=== PATIENT | female | born 1960 | race African-American/Black ===

== ENCOUNTER 2017-10-03 16:13 | Inpatient (IN) | payer OTHER ==
--- NOTE | 2017-10-03 19:50 | HP ---
Admission ROS [facility] - [facility] Chief Complaint: i want to go to rehab Allergies/Adverse Reactions: Allergies Allergy/AdvReac Type Severity Reaction Status Date / Time No Known Allergies Allergy Verified 10/03/17 18:56 History of Present Illness: 56 years old female with long history of cocaine marijuana nicotine dependence has schizophrenia is admitted to rehab Exam Limitations: No Limitations - Ebola screening Have you traveled outside of the country in the last 21 days: No Have you had contact with anyone from an Ebola affected area: No Have you been sick,other than usual withdrawal symptoms: No Do you have a fever: No - Review of Systems Constitutional: Loss of Appetite, Unintentional Wgt. Loss, Unexplained wgt Loss EENT: reports: Blurred Vision (reading eye glasses) Respiratory: reports: Cough Cardiac: reports: No Symptoms Reported GI: reports: No Symptoms Reported : reports: No Symptoms Reported Musculoskeletal: reports: No Symptoms Reported Integumentary: reports: No Symptoms Reported Neuro: reports: No Symptoms reported Endocrine: reports: No Symptoms Reported Hematology: reports: No Symptoms Reported Psychiatric: reports: Judgement Intact, Mood/Affect Appropiate, Orientated x3 Other Systems: Reviewed and Negative Patient History - Patient Medical History Hx Anemia: No Hx Asthma: No Hx Chronic Obstructive Pulmonary Disease (COPD): No Hx Cancer: No Hx Cardiac Disorders: No Hx Congestive Heart Failure: No Hx Hypertension: No Hx Hypercholesterolemia: No Hx Pacemaker: No HX Cerebrovascular Accident: No Hx Seizures: No Hx Dementia: No Hx Diabetes: No Hx Gastrointestinal Disorders: No Hx Liver Disease: No Hx Genitourinary Disorders: No Hx Sexually Transmitted Disorders: No Hx Renal Disease (ESRD): No Hx Thyroid Disease: No Hx Human Immunodeficiency Virus (HIV): No Hx Hepatitis C: No Hx Depression: No Hx Suicide Attempt: No Hx Bipolar Disorder: No Hx Schizophrenia: Yes - Patient Surgical History Past Surgical History: Yes Hx Orthopedic Surgery: Yes (fx age 46) Anesthesia Reaction: No - PPD History Previous Implant?: Yes Documented Results: Negative w/o proof Implanted On Prior R Admission?: No PPD to be Administered?: Yes - Reproductive History Patient is a Female of Child Bearing Age (11 -55 yrs old): No Last Menstrual Period: 10/03/02 Patient : No - Smoking Cessation Smoking history: Current every day smoker Have you smoked in the past 12 months: Yes Aproximately how many cigarettes per day: 10 Cigars Per Day: 0 Hx Chewing Tobacco Use: No Initiated information on smoking cessation: Yes 'Breaking Loose' booklet given: 10/03/17 - Substance & Tx. History Hx Alcohol Use: No Hx Substance Use: Yes Substance Use Type: Cocaine, Marijuana Hx Substance Use Treatment: No (2009) - Substances Abused Cocaine Route: Smoking Frequency: Daily Amount used: 50$ Age of first use: 25 Date of Last Use: 10/01/17 Marijuana/Hashish Route: Smoking Frequency: Daily Amount used: 5$ Age of first use: 14 Date of Last Use: 09/30/17 Family Disease History - Family Disease History Family Disease History: Heart Disease: Father, Respiratory: Mother, Other: Brother (no brother) Admission Physical Exam [facility] - Vital Signs Vital Signs: Vital Signs - 24 hr 10/03/17 18:31 Temperature 97.8 F Pulse Rate 67 Respiratory 18 Rate Blood Pressure 95/58 - Physical General Appearance: Yes: No Apparent Distress, Appropriately Dressed, Thin HEENTM: Yes: Hearing grossly Normal, Normal ENT Inspection, Normocephalic, Normal Voice Respiratory: Yes: Chest Non-Tender, Lungs Clear, Normal Breath Sounds, No Respiratory Distress, No Accessory Muscle Use Neck: Yes: Supple, Trachea in good position Breast: Yes: Breasts Symetrical Cardiology: Yes: Regular Rhythm, Regular Rate, S1, S2 Abdominal: Yes: Normal Bowel Sounds, Non Tender, Soft Genitourinary: Yes: Within Normal Limits Back: Yes: Normal Inspection Musculoskeletal: Yes: full range of Motion, Gait Steady, Back pain, Muscle Pain (right knee) Extremities: Yes: Normal Inspection, Normal Range of Motion, Non-Tender Neurological: Yes: Fully Oriented, Alert, Motor Strength 5/5, Normal Mood/Affect , Normal Response Integumentary: Yes: Warm Lymphatic: Yes: Within Normal Limits - Diagnostic (1) Cocaine dependence, uncomplicated Current Visit: Yes Status: Acute (2) Cannabis dependence, uncomplicated Current Visit: Yes Status: Acute (3) Nicotine dependence Current Visit: Yes Status: Acute Qualifiers: Nicotine product type: cigarettes Substance use status: in withdrawal Qualified Code(s): F17.213 - Nicotine dependence, cigarettes, with withdrawal (4) Weight loss Current Visit: Yes Status: Acute Cleared for Admission [facility] - Detox or Rehab [facility] Level of Care: Observation Bed Detox Regimen/Protocol: Not Applicable Claeared for Rehab Admission: Yes [facility] Breath Alcohol Content Breath Alcohol Content: 0 Urine Pregancy Test - Result Urine Test Results: Negative- NO Line Present Urine Drug Screen - Results Drug Screen Negative: No Urine Drug Screen Results: THC-Marijuana, JEFF-Cocaine Inpatient Rehab Admission - Initial Determination Are CD services needed?: Yes Free of communicable disease: Yes Not in need of hospitalization: Yes - Rehab Admission Criteria Previous failed treatment: Yes Poor recovery environment: Yes Comorbidities: Yes Lacks judgement: No Patient is meeting Inpatient Rehab admission criteria:: Yes
[2017-10-03] MEDS ORDERED: NICOTINE POLACRILEX 2 MG GUM BUC PRN (20:00)
[2017-10-03] MEDS ORDERED: IBUPROFEN 400 MG TABLET (FP) PO PRN (20:00)
[2017-10-03] MEDS ORDERED: guaiFENesin/D-METHORPHAN HB 10 ML UNIT-DOSE CUPS PO PRN (20:00)
[2017-10-03] MEDS ORDERED: P-EPHED 60MG/TRIPROLIDI 2.5MG TABLET PO PRN (20:00)
[2017-10-03] MEDS ORDERED: LOPERAMIDE HCL 2 MG CAPSULE PO PRN (20:00)
[2017-10-03] MEDS ORDERED: MAG HYDROX/AL HYDROX/SIMETH 30 ML UNIT-DOSE CUP PO PRN (20:00)
[2017-10-03] MEDS ORDERED: MENTHOL/PHENOL 1 EACH UD MM PRN (20:00)
[2017-10-03] MEDS ORDERED: MAGNESIUM HYDROX 2400MG/30ML ORAL SUSPENSION 30 ML CUP PO PRN (20:00)
[2017-10-03] MEDS ORDERED: MAGNESIUM CITRATE 300 ML BOTTLE PO PRN (20:00)
[2017-10-03] MEDS ORDERED: ACETAMINOPHEN 325 MG TABLET (FP) PO PRN (20:00)
--- NOTE | 2017-10-03 23:00 | PN ---
[facility] Progress Note Note: Psychiatry Attending's on-call note : Made aware of patient's admission to [facility]. Orders requested for haldol,depakote and cogentin. Spoke to patient (telephone).Reliable and clear historian. Medications verified through survey of pharmacy claims. Refills issued on 08/29/17 at [facility] for : haldol 5 mg # 60 tablets for 30 days cogentin 1 mg # 60 tablets for 30 days depakote 250 mg # 60 tablets for 30 days Ms Butts declares that she last took her medications this morning. Endorses adequate adherence and good tolerability. No prior history of adverse effects (as per self-report). Diagnosis : Schizophrenia. Plan : [facility] report is reviewed. History taken from patient. Medications verified. Side effects/benefits discussed with patient. Depakote level : requested. Haldol 5 mg po bid Cogentin 1 mg po bid Depakote HELD at this time (pending results of VA level,LFTS and CBC). Unit psychiatrist will advise in AM. Discussed with nurse on duty.
[2017-10-03] MEDS: THIAMINE HCL 100 MG TABLET (FP) PO SCH (23:06)
[2017-10-03 23:20] LABS: URINE APPEARANCE CLOUDY; URINE BILIRUBIN NEGATIVE (NEGATIVE); URINE BLOOD NEGATIVE (NEGATIVE); URINE COLOR DKYELLOW; URINE GLUCOSE (UA) NEGATIVE (NEGATIVE); URINE KETONE NEGATIVE (NEGATIVE); URINE NITRITE POSITIVE (NEGATIVE); URINE PROTEIN NEGATIVE (NEGATIVE); URINE UROBILINOGEN NEGATIVE mg/dL (0.2-1.0)
[2017-10-03 23:22] LABS: URINE LEUK ESTERASE 3+ (NEGATIVE)
[2017-10-03 23:29] LABS: EPI CELLS RARE /HPF (FEW); URINE BACTERIA MANY /hpf (NONE SEEN); URINE MUCUS MANY
[2017-10-03] MEDS: HALOPERIDOL 5 MG TABLET (FP) PO SCH (23:41)
[2017-10-03] MEDS: BENZTROPINE MESYLATE 1 MG TABLET (FP) PO SCH (23:41)
[2017-10-04] MEDS: HALOPERIDOL 5 MG TABLET (FP) PO SCH ×2 (09:35→21:47)
[2017-10-04] MEDS: BENZTROPINE MESYLATE 1 MG TABLET (FP) PO SCH ×2 (09:36→21:47)
[2017-10-04] MEDS: PRENATAL VITAMINS W/ FOLIC ACID TABLET (FP) PO SCH (09:36)
[2017-10-04] MEDS: NICOTINE 14 MG/24 HOURS TOPICAL PATCH TD SCH (09:36)
--- NOTE | 2017-10-04 09:39 | EKG ---
Test Reason : Blood Pressure : / mmHG Vent. Rate : 058 BPM Atrial Rate : 058 BPM P-R Int : 150 ms QRS Dur : 088 ms QT Int : 434 ms P-R-T Axes : 080 073 061 degrees QTc Int : 426 ms SINUS BRADYCARDIA ABNORMAL ECG NO PREVIOUS ECGS AVAILABLE Confirmed by FRANDY YANG, GIULIA ([id number]) on 10/04/2017 9:38:53 AM Referred By: Confirmed By:GIULIA WISE MD
[2017-10-04 10:14] LABS: HEMATOCRIT 37.6 % (32.4-45.2); HEMOGLOBIN 11.9 GM/dL (10.7-15.3); MCH 28.5 pg (25.7-33.7); MCHC 31.6 g/dl (32.0-36.0); MEAN CELL VOLUME 90.3 fl (80-96); MEAN PLT VOLUME 10.2 fl (7.5-11.1); PLATELET COUNT 231 K/MM3 (134-434); RBC 4.17 M/mm3 (3.60-5.2); RDW 14.7 % (11.6-15.6); WHITE BLOOD COUNT 8.3 K/mm3 (4.0-10.0)
[2017-10-04 10:27] LABS: CHLORIDE 107 mmol/L (98-107); POTASSIUM 4.4 mmol/L (3.5-5.1); SODIUM 142 mmol/L (136-145)
[2017-10-04 10:36] LABS: ALBUMIN 3.5 g/dl (3.4-5.0); ALK PHOS 114 U/L (45-117); ANION GAP 5 (8-16); BILIRUBIN,TOTAL 0.4 mg/dL (0.2-1.0); BLOOD UREA NITROGEN 8 mg/dL (7-18); CALCIUM 9.1 mg/dL (8.5-10.1); CO2 30 mmol/L (21-32); CREATININE 0.9 mg/dL (0.55-1.02); GLUCOSE,RANDOM 84 mg/dL (74-106); SGOT/AST 7 U/L (15-37); SGPT/ALT 15 U/L (12-78); TOT PROT 7.2 g/dl (6.4-8.2)
[2017-10-04] MEDS ORDERED: FLU VACCINE QUAD 60 MCG/0.5 ML (MDV 17-18) IM ONE (12:00)
--- NOTE | 2017-10-04 12:13 | EKG ---
Test Reason : Blood Pressure : / mmHG Vent. Rate : 057 BPM Atrial Rate : 057 BPM P-R Int : 148 ms QRS Dur : 082 ms QT Int : 440 ms P-R-T Axes : 069 070 040 degrees QTc Int : 428 ms SINUS BRADYCARDIA NONSPECIFIC T WAVE ABNORMALITY ABNORMAL ECG WHEN COMPARED WITH ECG OF 04-OCT-2017 00:23, NO SIGNIFICANT CHANGE WAS FOUND Confirmed by GIULIA WISE MD ([id number]) on 10/04/2017 12:12:54 PM Referred By: Confirmed By:GIULIA WISE MD
--- NOTE | 2017-10-04 14:14 | HP ---
Psychiatrist Admission - Data Date of interview: 10/04/17 Admission source: [facility] Identifying data: This is the first admission to [facility] inpatient rehabiklitation for this 56 years old AA ,childless,resides with roommate,suported by SSD. Medical History: H/O fracture of arm . Psychiatric History: First contact with psychiatrist was at 25 years old when she was admitted to [facility] due to psychosis drug related.She reports 4 more psychiatric hospitalizations.Patient was dx with Schizoaffective disorder.Bipolar disorder.Sanchez sees psychiatrist at [facility] in the [place].She is currently on Haldol 5 mg po bid,Cogentin 1 mg po bid and DepaKOTE Physical/Sexual Abuse/Trauma History: denies Vital Signs: Vital Signs - 24 hr 10/03/17 10/04/17 10/04/17 18:31 00:30 07:53 Temperature 97.8 F 98.2 F Pulse Rate 67 70 Respiratory 18 16 18 Rate Blood Pressure 95/58 99/63 Allergies/Adverse Reactions: Allergies Allergy/AdvReac Type Severity Reaction Status Date / Time No Known Allergies Allergy Verified 10/03/17 18:56 Date of last physical exam: 10/03/17 Concur with the findings of this exam: Yes - Substance Abuse/Tx History Hx Alcohol Use: Yes (socially) Hx Substance Use: Yes (reports crack/cocaine since 1985,spending $50 daily) Substance Use Type: Cocaine, Marijuana Hx Substance Use Treatment: Yes (completed inpatient rehab [employer] 10 yo, longest abstinence 6 yeasr) Mental Status Exam - Mental Status Exam Alert and Oriented to: Time, Place, Person Cognitive Function: Grossly Intact Patient Appearance: Unkempt Mood: Sad Affect: Mood Congruent, Labile Patient Behavior: Cooperative Speech Pattern: Clear Voice Loudness: Normal Thought Process: Goal Oriented Thought Disorder: Being Controlled Hallucinations: Denies Suicidal Ideation: Denies Homicidal Ideation: Denies Insight/Judgement: Fair Sleep: Fair Appetite: Fair Muscle strength/Tone: Normal Gait/Station: Normal Psychiatric Findings - Problem List ([place] 1, 2,3) (1) Nicotine dependence Current Visit: Yes Status: Chronic Qualifiers: Nicotine product type: cigarettes Substance use status: in withdrawal Qualified Code(s): F17.213 - Nicotine dependence, cigarettes, with withdrawal (2) Cocaine dependence Current Visit: Yes Status: Chronic (3) Cannabis dependence Current Visit: Yes Status: Chronic (4) Schizoaffective disorder Current Visit: Yes Status: Chronic - Initial Treatment Plan Initial Treatment Plan: Continue Haldol 5 mg po bid,Depakote 250 mg po bid, Cogentin 1 mg po bid. Will monitor progress.Obtain Depakote level.
[2017-10-04 15:28] LABS: RPR REACTIVE 1:2 (NONREACTIVE)
[2017-10-04] MEDS: THIAMINE HCL 100 MG TABLET (FP) PO SCH (21:47)
[2017-10-04] MEDS: DIVALPROEX SODIUM 250 MG TABLET E.C. (FP) PO SCH (21:47)
[2017-10-05] MEDS: DIVALPROEX SODIUM 250 MG TABLET E.C. (FP) PO SCH ×2 (10:01→21:31)
[2017-10-05] MEDS: BENZTROPINE MESYLATE 1 MG TABLET (FP) PO SCH ×2 (10:01→21:31)
[2017-10-05] MEDS: PRENATAL VITAMINS W/ FOLIC ACID TABLET (FP) PO SCH (10:01)
[2017-10-05] MEDS: HALOPERIDOL 5 MG TABLET (FP) PO SCH ×2 (10:01→21:31)
[2017-10-05] MEDS: NICOTINE 14 MG/24 HOURS TOPICAL PATCH TD SCH (10:02)
[2017-10-05 15:40] LABS: TREPONEMA ANTIBODY NON REACTIVE (NONREACTIVE)
[2017-10-05] MEDS: THIAMINE HCL 100 MG TABLET (FP) PO SCH (21:31)
[2017-10-06] MEDS: PRENATAL VITAMINS W/ FOLIC ACID TABLET (FP) PO SCH (09:58)
[2017-10-06] MEDS: BENZTROPINE MESYLATE 1 MG TABLET (FP) PO SCH ×2 (09:58→21:34)
[2017-10-06] MEDS: DIVALPROEX SODIUM 250 MG TABLET E.C. (FP) PO SCH ×2 (09:58→21:34)
[2017-10-06] MEDS: HALOPERIDOL 5 MG TABLET (FP) PO SCH ×2 (09:58→21:34)
[2017-10-06] MEDS: NICOTINE 14 MG/24 HOURS TOPICAL PATCH TD SCH (09:59)
[2017-10-06] MEDS: THIAMINE HCL 100 MG TABLET (FP) PO SCH (21:34)
[2017-10-07] MEDS: BENZTROPINE MESYLATE 1 MG TABLET (FP) PO SCH ×2 (10:30→21:31)
[2017-10-07] MEDS: DIVALPROEX SODIUM 250 MG TABLET E.C. (FP) PO SCH ×2 (10:30→21:31)
[2017-10-07] MEDS: HALOPERIDOL 5 MG TABLET (FP) PO SCH ×2 (10:30→21:31)
[2017-10-07] MEDS: NICOTINE 14 MG/24 HOURS TOPICAL PATCH TD SCH (10:30)
[2017-10-07] MEDS: PRENATAL VITAMINS W/ FOLIC ACID TABLET (FP) PO SCH (10:30)
[2017-10-07] MEDS: THIAMINE HCL 100 MG TABLET (FP) PO SCH (21:31)
[2017-10-08] MEDS: NICOTINE 14 MG/24 HOURS TOPICAL PATCH TD SCH (10:02)
[2017-10-08] MEDS: BENZTROPINE MESYLATE 1 MG TABLET (FP) PO SCH ×2 (10:03→21:44)
[2017-10-08] MEDS: DIVALPROEX SODIUM 250 MG TABLET E.C. (FP) PO SCH ×2 (10:03→21:45)
[2017-10-08] MEDS: PRENATAL VITAMINS W/ FOLIC ACID TABLET (FP) PO SCH (10:03)
[2017-10-08] MEDS: HALOPERIDOL 5 MG TABLET (FP) PO SCH ×2 (10:03→21:45)
[2017-10-08] MEDS: THIAMINE HCL 100 MG TABLET (FP) PO SCH (21:45)
[2017-10-09] MEDS: NICOTINE 14 MG/24 HOURS TOPICAL PATCH TD SCH (09:51)
[2017-10-09] MEDS: HALOPERIDOL 5 MG TABLET (FP) PO SCH ×2 (09:51→21:41)
[2017-10-09] MEDS: PRENATAL VITAMINS W/ FOLIC ACID TABLET (FP) PO SCH (09:51)
[2017-10-09] MEDS: BENZTROPINE MESYLATE 1 MG TABLET (FP) PO SCH ×2 (09:51→21:41)
[2017-10-09] MEDS: DIVALPROEX SODIUM 250 MG TABLET E.C. (FP) PO SCH ×2 (09:52→21:41)
[2017-10-09] MEDS: THIAMINE HCL 100 MG TABLET (FP) PO SCH (21:41)
[2017-10-10] MEDS: NICOTINE 14 MG/24 HOURS TOPICAL PATCH TD SCH (10:43)
[2017-10-10] MEDS: HALOPERIDOL 5 MG TABLET (FP) PO SCH ×2 (10:43→21:44)
[2017-10-10] MEDS: DIVALPROEX SODIUM 250 MG TABLET E.C. (FP) PO SCH ×2 (10:43→21:44)
[2017-10-10] MEDS: PRENATAL VITAMINS W/ FOLIC ACID TABLET (FP) PO SCH (10:43)
[2017-10-10] MEDS: BENZTROPINE MESYLATE 1 MG TABLET (FP) PO SCH ×2 (10:43→21:44)
[2017-10-10] MEDS: THIAMINE HCL 100 MG TABLET (FP) PO SCH (21:44)
[2017-10-11] MEDS ORDERED: PT OWN MED DRAWER 7, Y5N ONE ×2 (08:58→10:22)
[2017-10-11] MEDS: BENZTROPINE MESYLATE 1 MG TABLET (FP) PO SCH ×2 (10:00→21:40)
[2017-10-11] MEDS: NICOTINE 14 MG/24 HOURS TOPICAL PATCH TD SCH (10:01)
[2017-10-11] MEDS: DIVALPROEX SODIUM 250 MG TABLET E.C. (FP) PO SCH ×2 (10:01→21:40)
[2017-10-11] MEDS: HALOPERIDOL 5 MG TABLET (FP) PO SCH ×2 (10:01→21:40)
[2017-10-11] MEDS: PRENATAL VITAMINS W/ FOLIC ACID TABLET (FP) PO SCH (10:01)
[2017-10-11] MEDS: THIAMINE HCL 100 MG TABLET (FP) PO SCH (21:40)
[2017-10-12] MEDS: NICOTINE 14 MG/24 HOURS TOPICAL PATCH TD SCH (10:14)
[2017-10-12] MEDS: BENZTROPINE MESYLATE 1 MG TABLET (FP) PO SCH ×2 (10:14→21:32)
[2017-10-12] MEDS: HALOPERIDOL 5 MG TABLET (FP) PO SCH ×2 (10:14→21:32)
[2017-10-12] MEDS: DIVALPROEX SODIUM 250 MG TABLET E.C. (FP) PO SCH ×2 (10:14→21:32)
[2017-10-12] MEDS: PRENATAL VITAMINS W/ FOLIC ACID TABLET (FP) PO SCH (10:14)
[2017-10-12] MEDS: THIAMINE HCL 100 MG TABLET (FP) PO SCH (21:32)
[2017-10-12] MEDS: diphenhydrAMINE HCL 50 MG CAPSULE PO SCH (21:33)
[2017-10-13] MEDS: NICOTINE 14 MG/24 HOURS TOPICAL PATCH TD SCH (10:27)
[2017-10-13] MEDS: HALOPERIDOL 5 MG TABLET (FP) PO SCH ×2 (10:27→21:37)
[2017-10-13] MEDS: PRENATAL VITAMINS W/ FOLIC ACID TABLET (FP) PO SCH (10:28)
[2017-10-13] MEDS: BENZTROPINE MESYLATE 1 MG TABLET (FP) PO SCH ×2 (10:28→21:37)
[2017-10-13] MEDS: DIVALPROEX SODIUM 250 MG TABLET E.C. (FP) PO SCH ×2 (10:28→21:37)
[2017-10-13] MEDS: THIAMINE HCL 100 MG TABLET (FP) PO SCH (21:37)
[2017-10-13] MEDS: diphenhydrAMINE HCL 50 MG CAPSULE PO SCH (21:37)
[2017-10-14] MEDS: BENZTROPINE MESYLATE 1 MG TABLET (FP) PO SCH ×2 (10:22→21:32)
[2017-10-14] MEDS: DIVALPROEX SODIUM 250 MG TABLET E.C. (FP) PO SCH ×2 (10:22→21:33)
[2017-10-14] MEDS: PRENATAL VITAMINS W/ FOLIC ACID TABLET (FP) PO SCH (10:22)
[2017-10-14] MEDS: HALOPERIDOL 5 MG TABLET (FP) PO SCH ×2 (10:22→21:33)
[2017-10-14] MEDS: NICOTINE 14 MG/24 HOURS TOPICAL PATCH TD SCH (10:22)
[2017-10-14] MEDS: THIAMINE HCL 100 MG TABLET (FP) PO SCH (21:32)
[2017-10-14] MEDS: diphenhydrAMINE HCL 50 MG CAPSULE PO SCH (21:33)
[2017-10-15] MEDS: NICOTINE 14 MG/24 HOURS TOPICAL PATCH TD SCH (10:07)
[2017-10-15] MEDS: PRENATAL VITAMINS W/ FOLIC ACID TABLET (FP) PO SCH (10:07)
[2017-10-15] MEDS: HALOPERIDOL 5 MG TABLET (FP) PO SCH ×2 (10:07→21:47)
[2017-10-15] MEDS: BENZTROPINE MESYLATE 1 MG TABLET (FP) PO SCH ×2 (10:08→21:47)
[2017-10-15] MEDS: DIVALPROEX SODIUM 250 MG TABLET E.C. (FP) PO SCH ×2 (10:08→21:47)
[2017-10-15] MEDS: THIAMINE HCL 100 MG TABLET (FP) PO SCH (21:47)
[2017-10-15] MEDS: diphenhydrAMINE HCL 50 MG CAPSULE PO SCH (21:47)
[2017-10-16] MEDS: HALOPERIDOL 5 MG TABLET (FP) PO SCH ×2 (10:15→21:48)
[2017-10-16] MEDS: DIVALPROEX SODIUM 250 MG TABLET E.C. (FP) PO SCH ×2 (10:15→21:48)
[2017-10-16] MEDS: BENZTROPINE MESYLATE 1 MG TABLET (FP) PO SCH ×2 (10:15→21:48)
[2017-10-16] MEDS: NICOTINE 14 MG/24 HOURS TOPICAL PATCH TD SCH (10:16)
[2017-10-16] MEDS: PRENATAL VITAMINS W/ FOLIC ACID TABLET (FP) PO SCH (10:16)
--- NOTE | 2017-10-16 17:22 | PN ---
Psychiatric Progress Note Vital Signs: Vital Signs Period Temp Pulse Resp BP Sys/Torrez Pulse Ox Last 24 Hr 98.5 F 71 16-18 90/58 Date of Session: 10/16/17 Chief Complaint:: Discharge visit HPI: Cocaine,Cannabis comorbid with Schizoaffective disorder. ROS: unremarkable Current Medications: Active Medications Generic Name Dose Route Start Last Admin Trade Name Freq PRN Reason Stop Dose Admin Acetaminophen 650 mg 10/03/17 20:00 Tylenol - PO Q4H PRN PAIN Al Hydroxide/Mg Hydroxide 30 ml 10/03/17 20:00 Mylanta Oral Suspension - PO Q6H PRN DYSPEPSIA Benztropine Mesylate 1 mg 10/03/17 23:15 10/16/17 10:15 Cogentin - PO 1 mg BID CARMEN Administration Diphenhydramine HCl 50 mg 10/12/17 22:00 10/15/17 21:47 Benadryl - PO 50 mg HS CARMEN Administration Divalproex Sodium 250 mg 10/04/17 22:00 10/16/17 10:15 Depakote - PO 250 mg BID CARMEN Administration Eucalyptus/Menthol/Phenol/Sorbitol 1 each 10/03/17 20:00 Cepastat Lozenge - MM Q4H PRN SORE THROAT Guaifenesin 10 ml 10/03/17 20:00 Robitussin Dm - PO Q6H PRN COUGH Haloperidol 5 mg 10/03/17 23:15 10/16/17 10:15 Haldol - PO 5 mg BID CARMEN Administration Ibuprofen 400 mg 10/03/17 20:00 Motrin - PO Q6H PRN SEVERE PAIN Loperamide HCl 4 mg 10/03/17 20:00 Imodium - PO Q6H PRN DIARRHEA Magnesium Citrate 300 ml 10/03/17 20:00 Citroma - PO Q48H PRN CONSTIPATION Magnesium Hydroxide 30 ml 10/03/17 20:00 Milk Of Magnesia - PO DAILY PRN CONSTIPATION Nicotine 14 mg 10/04/17 10:00 10/16/17 10:16 Nicoderm Patch - TD Not Given DAILY CARMEN Nicotine Polacrilex 2 mg 10/03/17 20:00 Nicorette Gum - BUC Q2H PRN NICOTINE REPLACEMENT RX Multivit/Folic Acid/Iron 1 tab 10/04/17 10:00 10/16/17 10:16 Vitamins (Sjr) - PO 1 tab DAILY CARMEN Administration Pseudoephedrine/Triprolidine 1 combo 10/03/17 20:00 Actifed - PO TID PRN NASAL CONGESTION Thiamine HCl 100 mg 10/03/17 22:00 10/15/17 21:47 Vitamin B1 - PO 100 mg HS CARMEN Administration Current Side Effect: No Lab tests ordered: No Lab tests reviewed: Yes Provider note:: Patient will complete this program tomorrow 10/17/17.She has met her treatment goals and will continue to address her issues on outpatient basis.Patient reports finding that Haldol 5 mg po bid,Depakote 250 mg po bid and Cogentin 1 mg po bid help to cope with mood instability,psychotic symptoms.Scripts for 30 days provided. Patient focuses on insight gained in treatment.She identified behaviors which contribute to relapse.Coping skills, support utilizations has been discuassed as well.Patient is stable for discharge tomorrow 10/17/17. Therapy provided focusing on relapse prevention.Coping skills,support utilization has been discussed with the patient to maintain recovery. Patient is stable for discharge tomorrow . Total face to face time:: 30 Mental Status Exam - Mental Status Exam Alert and Oriented to: Time, Place, Person Cognitive Function: Grossly Intact Patient Appearance: Unkempt Mood: Euthymic Affect: Mood Congruent Patient Behavior: Cooperative Speech Pattern: Clear Voice Loudness: Normal Thought Process: Goal Oriented Thought Disorder: Being Controlled Hallucinations: Denies Suicidal Ideation: Denies Homicidal Ideation: Denies Insight/Judgement: Fair Sleep: Fair Appetite: Good Muscle strength/Tone: Normal Gait/Station: Normal Psychiatric Treatment Plan - Problem List (1) Nicotine dependence Qualifiers: Nicotine product type: cigarettes Substance use status: in withdrawal Qualified Code(s): F17.213 - Nicotine dependence, cigarettes, with withdrawal
[2017-10-16] MEDS: THIAMINE HCL 100 MG TABLET (FP) PO SCH (21:48)
[2017-10-16] MEDS: diphenhydrAMINE HCL 50 MG CAPSULE PO SCH (21:49)
[2017-10-17 07:06] VITALS: BP 100/64; PULSE 66; TEMP 97.7
[2017-10-17] MEDS: HALOPERIDOL 5 MG TABLET (FP) PO SCH (09:47)
[2017-10-17] MEDS: PRENATAL VITAMINS W/ FOLIC ACID TABLET (FP) PO SCH (09:47)
[2017-10-17] MEDS: DIVALPROEX SODIUM 250 MG TABLET E.C. (FP) PO SCH (09:47)
[2017-10-17] MEDS: BENZTROPINE MESYLATE 1 MG TABLET (FP) PO SCH (09:47)
[2017-10-17] MEDS: NICOTINE 14 MG/24 HOURS TOPICAL PATCH TD SCH (09:49)
== END 2017-10-17 10:35 | disposition home or self-care (01) | DRG 895 ==
LOC: YASAS 16:13 → Y3E 20:36
PROVIDERS: ADMIT Psychiatry & Neurology Psychiatry; ATTEND Psychiatry & Neurology Psychiatry
PROC: HZ42ZZZ Group Counseling for Substance Abuse Treatment, Cognitive-Behavioral (ICD-10-PCS; principal; 2017-10-03)
DX: F14.20 Cocaine dependence, uncomplicated (principal); F17.213 Nicotine dependence, cigarettes, with withdrawal; F12.20 Cannabis dependence, uncomplicated; F25.9 Schizoaffective disorder, unspecified; Z87.898 Personal history of other specified conditions
CPT/HCPCS: 36415; 80053; 80164; 81003; 81015; 85027; 86593; 86780; 90688; 93005; 93010